=== PATIENT | female | born 1980 | race Asian ===

== ENCOUNTER 2020-10-26 06:40 | Inpatient (IN) | payer OTHER ==
[~2020-10-26] VITALS: Ht 149.9 cm; Wt 75.8 kg
[~2020-10-26 06:40] MED LIST: METF500 PO
[2020-10-26] MEDS ORDERED: GLUCOPHAGE1000 M1 PO (07:31)
[2020-10-26] MEDS ORDERED: PRENATAL TABLE1 EAC2 PO (07:31)
[2020-10-26 08:09] LABS: BASOPHILS ABSOLUTE AUTO 0.06 K/mm3 (0.00-0.23); BASOPHILS PERCENT AUTO 1 % (0-2); EOSINOPHILS ABSOLUTE AUTO 0.14 K/mm3 (0.00-0.68); EOSINOPHILS PERCENT AUTO 1 % (0-6); Hematocrit 37.4 % (33.0-51.0); Hemoglobin 12.5 g/dL (11.5-16.0); IMMATURE GRAN ABSOLUTE AUTO 0.05 K/mm3 (0.00-0.10); IMMATURE GRAN PERCENT AUTO 1 % (0-1); LYMPHOCYTES ABSOLUTE AUTO 2.52 K/mm3 (0.84-5.20); LYMPHOCYTES PERCENT AUTO 25 % (21-46); MONOCYTES ABSOLUTE AUTO 0.79 K/mm3 (0.16-1.47); MONOCYTES PERCENT AUTO 8 % (4-13); Mean Corpuscular HGB 27.4 pg (26.0-34.0); Mean Corpuscular HGB Conc 33.4 g/dL (31.5-36.5); Mean Corpuscular Volume 82 fL (80-100); NEUTROPHILS PERCENT AUTO 65 % (41-73); Platelet Count 167 K/mm3 (150-400); RDW Coefficient Variation 13.2 % (11.7-14.2); RDW Standard Deviation 38.8 fL (35.1-46.3); Red Blood Cell Count 4.57 M/mm3 (3.80-5.20); White Blood Cell Count 10.16 K/mm3 (4.00-11.30)
[2020-10-26 09:18] LABS: PCO2 Cord - Arterial 64.4 mmHg (40-50); pH Cord - Arterial 7.26 (7.28-7.35)
[2020-10-26 09:22] LABS: PO2 Cord - Venous 18.4 mmHg (28-32)
--- NOTE | 2020-10-26 09:24 | NUR ---
10/26/20 0924 Yuliana Meza 0900 DELIVERY VIABLE MALE , WEIGHT [id number], [id number], HEAD 13.75 INCHES, CHEST 13 INCHES, LENGTH 19.5 INCHES, APGARS 9/9, UMBILICAL CORD SEGMENT SENT WITH RT FOR CORD GASES, UMBILICAL CORD BLOOD COLLECTED FOR NB TYPE AND RH
--- NOTE | 2020-10-26 12:31 | NUR ---
ABDOMINAL BINDER ADJUSTED IT HAD ROLLED DOWN. PATIENT PLANS TO REST. IN CRIB AT BEDSIDE.
[2020-10-27 05:36] LABS: BASOPHILS ABSOLUTE AUTO 0.04 K/mm3 (0.00-0.23); BASOPHILS PERCENT AUTO 0 % (0-2); EOSINOPHILS ABSOLUTE AUTO 0.14 K/mm3 (0.00-0.68); EOSINOPHILS PERCENT AUTO 1 % (0-6); Hematocrit 26.8 % (33.0-51.0); Hemoglobin 8.6 g/dL (11.5-16.0); IMMATURE GRAN ABSOLUTE AUTO 0.05 K/mm3 (0.00-0.10); IMMATURE GRAN PERCENT AUTO 0 % (0-1); LYMPHOCYTES ABSOLUTE AUTO 2.78 K/mm3 (0.84-5.20); LYMPHOCYTES PERCENT AUTO 22 % (21-46); MONOCYTES ABSOLUTE AUTO 0.91 K/mm3 (0.16-1.47); MONOCYTES PERCENT AUTO 7 % (4-13); Mean Corpuscular HGB 27.4 pg (26.0-34.0); Mean Corpuscular HGB Conc 32.1 g/dL (31.5-36.5); Mean Corpuscular Volume 85 fL (80-100); NEUTROPHILS PERCENT AUTO 69 % (41-73); Platelet Count 134 K/mm3 (150-400); RDW Coefficient Variation 13.4 % (11.7-14.2); Red Blood Cell Count 3.14 M/mm3 (3.80-5.20); White Blood Cell Count 12.52 K/mm3 (4.00-11.30)
[2020-10-27] MEDS ORDERED: IBUP800 PO (07:44)
[2020-10-27] MEDS ORDERED: Percocet 5-3251 EACH PO (07:45)
--- NOTE | 2020-10-27 13:21 | NUR ---
CBG 1 HOUR PP PT DECLINES TO HAVE BLOOD SUGAR CHECKED AT THIS TIME.
--- NOTE | 2020-10-28 09:54 | NUR ---
PT UP AND AMBULATED IN HALLS INSTRUCTIONED. TOLERATED WELL. STARTING TO FEEL LIKE SHE NEEDS TO HAVE A BOWEL MOVEMENT. BF WELL. PAIN WELL CONTROLLED WITH MEDS
--- NOTE | 2020-10-28 14:36 | NUR ---
DISCHARGE DC HOME STABLE. MOTHER VERBALIZES UNDERSTANDING OF DC INSTRUCTIONS AND FOLLOW UP APPOINTMENTS. NO QUESTIONS OR CONCERNS. CARING FOR SELF AND BABY WILL SOME ASSISTANCE BY FOB. BF WELL AND PAIN WELL CONTROLLED WITH MEDICATIONS WHICH WILL BE TICKET MARKER AT PHARMACY.
--- NOTE | 2020-10-30 10:57 | NUR ---
LATE ENTRY OR SURGICAL CHECKLIST PER RN AND EMR
== END 2020-10-28 14:05 | disposition home or self-care (01) | DRG 783 ==
LOC: BC 06:40
PROVIDERS: ADMIT Obstetrics & Gynecology
PROC: 10D00Z1 Extraction of Products of Conception, Low, Open Approach (ICD-10-PCS; principal; 2020-10-26 08:30)
PROC: 0UB70ZZ Excision of Bilateral Fallopian Tubes, Open Approach (ICD-10-PCS; 2020-10-26 08:30)
DX: O34.219 Maternal care for unspecified type scar from previous cesarean delivery (principal); O24.12 Pre-existing type 2 diabetes mellitus, in childbirth; Z3A.39 39 weeks gestation of pregnancy; Z37.0 Single live birth; Z20.822 Contact with and (suspected) exposure to COVID-19; Z67.40 Type O blood, Rh positive; E11.65 Type 2 diabetes mellitus with hyperglycemia
CPT/HCPCS: 36415; 36416; 82803; 82947; 85025; 86850; 86900; 86901; 88302; 91303; A9270; J0690; J1885; J2370; J2405; J2590; J2765; J3010; J7120

== ENCOUNTER 2021-04-08 11:57 | Emergency (ER) | payer OTHER ==
[~2021-04-08] VITALS: Ht 147.3 cm; Wt 68.0 kg
[~2021-04-08 11:57] MED LIST changes: +GLUCOPHAGE1000 M1 PO; +IBUP800 PO; +PRENATAL TABLE1 EAC2 PO; +Percocet 5-3251 EACH PO
[2021-04-08 13:07] LABS: BASOPHILS ABSOLUTE AUTO 0.05 K/mm3 (0.00-0.23); BASOPHILS PERCENT AUTO 0 % (0-2); EOSINOPHILS ABSOLUTE AUTO 0.15 K/mm3 (0.00-0.68); EOSINOPHILS PERCENT AUTO 1 % (0-6); Hematocrit 39.6 % (33.0-51.0); Hemoglobin 12.9 g/dL (11.5-16.0); IMMATURE GRAN ABSOLUTE AUTO 0.06 K/mm3 (0.00-0.10); IMMATURE GRAN PERCENT AUTO 0 % (0-1); LYMPHOCYTES PERCENT AUTO 14 % (21-46); MONOCYTES ABSOLUTE AUTO 1.16 K/mm3 (0.16-1.47); MONOCYTES PERCENT AUTO 8 % (4-13); Mean Corpuscular HGB 26.9 pg (26.0-34.0); Mean Corpuscular HGB Conc 32.6 g/dL (31.5-36.5); Mean Corpuscular Volume 83 fL (80-100); NEUTROPHILS ABSOLUTE AUTO 11.87 K/mm3 (1.96-9.15); NEUTROPHILS PERCENT AUTO 77 % (41-73); Platelet Count 229 K/mm3 (150-400); RDW Coefficient Variation 12.4 % (11.7-14.2); RDW Standard Deviation 37.8 fL (35.1-46.3); Red Blood Cell Count 4.79 M/mm3 (3.80-5.20); White Blood Cell Count 15.49 K/mm3 (4.00-11.30)
[2021-04-08 13:09] LABS: Mean Platelet Volume 13.5 fL (9.1-12.4)
[2021-04-08 13:18] LABS: Alanine Aminotransfer (ALT/SGP 20 U/L (12-78); Albumin, Blood 3.1 g/dL (3.4-5.0); Albumin/Globulin Ratio 0.6 (0.8-1.8); Alk Phos 75 U/L (50-136); Anion Gap 6 mmol/L (6-16); Aspartate Aminotrans (AST/SGOT 18 U/L (12-37); Bilirubin, Total 0.5 mg/dL (0.1-1.0); Blood Urea Nitrogen 10 mg/dL (8-24); Bun/Creatinine Ratio 17.9 (12.0-20.0); CO2, Blood 25 mmol/L (21-32); Calcium, Blood 9.1 mg/dL (8.5-10.1); Chloride, Blood 106 mmol/L (98-108); Creatinine, Blood 0.56 mg/dL (0.40-1.00); Glomerular Filtration Rate >60 (60-); Glucose, Blood 119 mg/dL (70-99); Potassium, Blood 4.3 mmol/L (3.5-5.5); Sodium, Blood 137 mmol/L (136-145); Total Protein, Blood 8.1 g/dL (6.4-8.2)
[2021-04-08] MEDS ORDERED: AMOCLA875 PO (14:07)
== END 2021-04-08 14:20 | disposition home or self-care (01) ==
LOC: ER 11:57
PROVIDERS: Physician Assistant
DX: K57.32 Diverticulitis of large intestine without perforation or abscess without bleeding (principal); K52.9 Noninfective gastroenteritis and colitis, unspecified; Z79.84 Long term (current) use of oral hypoglycemic drugs; Z79.899 Other long term (current) drug therapy
CPT/HCPCS: 36415; 74176; 80053; 83690; 85025; 96374; 99284-25; J2405

== ENCOUNTER 2023-04-27 12:49 | Emergency (ER) | payer OTHER ==
[~2023-04-27] VITALS: Ht 147.3 cm; Wt 70.3 kg
[~2023-04-27 12:49] MED LIST changes: +AMOCLA875 PO
[2023-04-27 13:27] LABS: BASOPHILS ABSOLUTE AUTO 0.02 K/mm3 (0.00-0.23); BASOPHILS PERCENT AUTO 0 % (0-2); EOSINOPHILS ABSOLUTE AUTO 0.19 K/mm3 (0.00-0.68); EOSINOPHILS PERCENT AUTO 1 % (0-6); Hematocrit 42.2 % (33.0-51.0); Hemoglobin 13.5 g/dL (11.5-16.0); IMMATURE GRAN ABSOLUTE AUTO 0.06 K/mm3 (0.00-0.10); IMMATURE GRAN PERCENT AUTO 0 % (0-1); LYMPHOCYTES ABSOLUTE AUTO 2.81 K/mm3 (0.84-5.20); LYMPHOCYTES PERCENT AUTO 17 % (21-46); MONOCYTES ABSOLUTE AUTO 0.51 K/mm3 (0.16-1.47); MONOCYTES PERCENT AUTO 3 % (4-13); Mean Corpuscular HGB 26.8 pg (26.0-34.0); Mean Corpuscular Volume 84 fL (80-100); NEUTROPHILS ABSOLUTE AUTO 12.52 K/mm3 (1.96-9.15); NEUTROPHILS PERCENT AUTO 78 % (41-73); Platelet Count 268 K/mm3 (150-400); RDW Coefficient Variation 12.7 % (11.7-14.2); RDW Standard Deviation 38.7 fL (35.1-46.3); Red Blood Cell Count 5.03 M/mm3 (3.80-5.20); White Blood Cell Count 16.11 K/mm3 (4.00-11.30)
[2023-04-27 13:29] LABS: Mean Platelet Volume 13.2 fL (9.1-12.4)
[2023-04-27 13:44] LABS: Albumin, Blood 3.3 g/dL (3.4-5.0); Albumin/Globulin Ratio 0.7 (0.8-1.8); Bilirubin, Total 0.5 mg/dL (0.1-1.0); Bun/Creatinine Ratio 13.6 (12.0-20.0); Calcium, Blood 8.7 mg/dL (8.5-10.1); Creatinine, Blood 0.66 mg/dL (0.40-1.00); Globulin, Blood 4.6 g/dL (2.2-4.0); Potassium, Blood 4.1 mmol/L (3.5-5.5); Total Protein, Blood 7.9 g/dL (6.4-8.2)
[2023-04-27] MEDS ORDERED: Simvastatin20 MG PO (15:25)
[2023-04-27 15:27] LABS: Source, Urine Clean Catch
[2023-04-27 15:38] LABS: Appearance, Urine Clear (Clear); Bilirubin, Urine Neg (Neg); Blood, Urine 1+ (Neg); Color, Urine Yellow (P-Yellow); Glucose Qualitative, Urine Neg (Neg); Ketones, Urine 2+ (Neg); Leukocyte Esterase, Urine Neg (Neg); Nitrite, Urine Neg (Neg); Protein, Urine 1+ (Neg); Urobilinogen, Urine NORM (Normal)
[2023-04-27 15:49] LABS: Bacteria Rare /hpf; Red Blood Cells, Urine 0-2 /hpf (0-2); Squamous Epithelial Cells Few /hpf (Few); White Blood Cells, Urine 0-2 /hpf (0-5)
[2023-04-27 16:30] VITALS: BP 126/84
[2023-04-27] MEDS ORDERED: Percocet 5-3251 EACH PO (16:31)
[2023-04-27] MEDS ORDERED: ONDA4ODT MM (16:31)
== END 2023-04-27 16:30 | disposition home or self-care (01) ==
LOC: ER 12:49
PROVIDERS: Emergency Medicine; Student in an Organized Health Care Education/Training Program
DX: K52.9 Noninfective gastroenteritis and colitis, unspecified (principal); D72.829 Elevated white blood cell count, unspecified
CPT/HCPCS: 74177; 80053; 81001; 83690; 84484; 84702; 85025; 93005; 93010; 96361; 96374-59; 99284-25; J2405; J7030; Q9967